=== PATIENT | female | born 1960 | race African-American/Black ===

== ENCOUNTER → 2021-05-14 | Outpatient (CLI) | payer BC | LOC: US 08:53 | PROVIDERS: ATTEND Emergency Medicine | DX: K75.81 Nonalcoholic steatohepatitis (NASH) (principal); L97.921 Non-pressure chronic ulcer of unspecified part of left lower leg limited to breakdown of skin; I73.9 Peripheral vascular disease, unspecified | CPT/HCPCS: 76705; 93925 ==

== ENCOUNTER → 2021-06-24 | Outpatient (CLI) | payer BC | LOC: US 08:22 | PROVIDERS: ATTEND Emergency Medicine | DX: E04.9 Nontoxic goiter, unspecified (principal) | CPT/HCPCS: 76536 ==

== ENCOUNTER → 2023-12-04 | Outpatient (REF) | payer BC | LOC: US 09:05 | PROVIDERS: ATTEND Emergency Medicine | DX: E04.1 Nontoxic single thyroid nodule (principal) | CPT/HCPCS: 76536 ==